=== PATIENT | female | born 1995 | race African-American/Black ===

== ENCOUNTER 2019-06-03 12:59 | Emergency (ER) | payer OTHER, SELFPAY ==
--- NOTE | ~2019-06-03 | CT_ITS ---
EXAMINATION: CTA chest PE protocol DATE: 06/03/2019 16:10 INDICATION: Persistent dry cough TECHNIQUE: Computed tomography (CT) pulmonary angiogram of the chest was performed with 100 mL Omnipa que-350 intravenous contrast. Additional 3D reconstructions utilizing coronal maximum intensity proje ction (MIP) were performed. The dose-length product was 163.06 mGy-cm. COMPARISON: None FINDINGS: Excellent contrast opacification of the pulmonary arteries. There is mild streak artifact from dense contrast in the superior vena cava and right atrium small metallic items external to the patient. Mil d scattered respiratory motion artifact which does not significantly limit evaluation. No pulmonary e mbolism. Diffuse mild bronchial wall thickening. No evident mucus or other endobronchial lesions. No airspace disease, pulmonary edema, pleural effusion or pneumothorax. Heart size is normal. No pericar dial effusion. No pathologically enlarged thoracic lymphadenopathy. Mild thoracic levocurvature. IMPRESSION: 1. Mild bronchial wall thickening without evident lung disease consistent with bronchitis. Reviewed, dictated and finalized at location A.
--- NOTE | ~2019-06-03 | XR_ITS ---
EXAMINATION: XR chest 2V DATE: 06/03/2019 14:02 INDICATION: 3 weeks of productive cough TECHNIQUE: PA and lateral views of the chest were obtained. COMPARISON: None FINDINGS: The lungs are clear with no focal airspace opacities, pulmonary edema, pleural effusion or pneumothor ax. The cardiomediastinal silhouette is normal. Mild lower thoracic levocurvature. IMPRESSION: 1. No acute cardiopulmonary disease. Reviewed, dictated and finalized at location A.
[2019-06-03 13:14] VITALS: BP 105/60; PULSE 90; RESP 16; TEMP 36.7; O2SAT 94
[2019-06-03 13:22] VITALS: BP 105/60; PULSE 90; RESP 17; TEMP 36.7; O2SAT 94
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
[2019-06-03 15:06] LABS: Basophils Percent Auto 0.3 % (0.2-1.2); Eosinophils Absolute Auto 0.3 K/mm3 (0-0.3); Hematocrit 33.6 % (37.0-47.0); Hemoglobin 11.6 g/dL (12.0-15.0); Immature Granulocyte Absolute 0.02 K/mm3 (0.00-0.031); Immature Granulocyte Percent A 0.3 % (0-0.5); Lymphocytes Absolute Auto 2.12 K/mm3 (0.9-3.2); Lymphocytes Percent Auto 27.1 % (18.3-44.2); Mean Corpuscular HGB Conc 34.5 g/dl (32-36); Mean Corpuscular Hemoglobin 27.8 pg (26-34); Mean Corpuscular Volume 80.4 fl (80-100); Mean Platelet Volume 9.6 fl (7.4-10.4); Monocytes Absolute Auto 0.7 K/mm3 (0.1-0.6); Neutrophils Absolute Auto 4.7 K/mm3 (1.3-6.7); Neutrophils Percent Auto 59.3 % (45.5-73.1); Platelet Count Result 283 k/mm3 (150-375); Red Blood Count 4.18 M/mm3 (4.2-5.4); Red Cell Distribution Width 13.2 % (11.5-14.5); White Blood Count 7.8 K/mm3 (4.5-10.0)
[2019-06-03 15:18] LABS: Alanine Aminotransferase 12 U/L (4-35); Albumin Level 3.8 g/dL (3.5-5.1); Alkaline Phosphatase 68 U/L (38-126); Aspartate Amino Transferase 21 U/L (14-36); Bilirubin,Total 0.6 mg/dL (0.2-1.3); Blood Urea Nitrogen 7 mg/dL (7-17); Calcium 8.7 mg/dL (8.4-10.2); Carbon Dioxide 23 mmol/L (22-30); Chloride 108 mmol/L (98-107); Estimated CRCL calculation 67 ml/min; Estimated Glomerular Filt Rate > 60; Glucose 73 mg/dL (65-105); Sodium 137 mmol/L (137-145)
[2019-06-03 16:21] VITALS: BP 112/78; PULSE 58; RESP 15; O2SAT 100
== END 2019-06-03 16:49 | disposition home or self-care (01) ==
PROVIDERS: Physician Assistant; Emergency Provider Emergency Medicine
DX: J40 Bronchitis, not specified as acute or chronic (principal)
CPT/HCPCS: 36415; 71046; 71275; 80053; 81025; 85025; 87804; 99284; Q9967

== ENCOUNTER 2023-07-23 08:44 | Emergency (ER) | payer OTHER, SELFPAY ==
[2023-07-23 08:47] VITALS: BP 113/86; PULSE 84; RESP 17; TEMP 36.8; O2SAT 100
--- NOTE | 2023-07-23 09:06 | ED.URI ---
HPI - URI/Sore Throat General Chief Complaint: Upper Respiratory Infection Stated Complaint: headache, cough Time Seen by Provider: 07/23/23 08:47 History of Present Illness HPI Narrative: 28-year-old female no medical problems presents to the emergency room for acute onset of cough, sinus congestion, PND, headaches, and body aches for 3 days. Patient states she has taken Robitussin times once with no improvement of her symptoms. Denies any shortness of breath difficulty breathing. Denies any earache or sore throat. Denies fevers Related Data Allergies Allergy/AdvReac Type Severity Reaction Status Date / Time No Known Allergies Allergy Verified 07/23/23 08:50 Review of Systems Review of Systems: ROS unremarkable except for noted in HPI PMFSH Social History Social History Gender identity (if verbalized by the patient): Female Exam Narrative: GENERAL: Well-appearing, well-nourished, no physical limitations, and in no acute distress. HEAD: Normocephalic, atraumatic. EYES: Conjunctivae normal, PERRLA and EOMI. ENT: External nose normal, Nares with clear rhinorrhea. Mucous membranes moist. Oropharynx without tonsillar hypertrophy exudate or other lesions. External ears normal, bilateral TMs normal bilaterally NECK: Supple. No meningeal signs. No adenopathy or masses. CHEST: Clear to auscultation. No respiratory distress. No wheezes rales or rhonchi. HEART: Regular rate and rhythm. No murmur heard. Normal peripheral pulses. EXTREMITIES: Normal range of motion. No edema. No clubbing or cyanosis SKIN: Warm, dry, no rash. No noted wounds NEURO: No focal deficits. Alert and oriented x3. MAEW. CN's II-XI intact bilaterally, normal gait PSYCH: Cooperative. Normal mood and affect. Course Vital Signs Vital signs: Vital Signs Temperature 36.8 C 07/23/23 08:47 Pulse Rate 84 07/23/23 08:47 Respiratory Rate 17 07/23/23 08:47 Blood Pressure 113/86 07/23/23 08:47 Pulse Oximetry 100 07/23/23 08:47 Oxygen Delivery Room Air 07/23/23 08:47 Temperature 36.8 C 07/23/23 08:47 Pulse Rate 84 07/23/23 08:47 Respiratory Rate 17 07/23/23 08:47 Blood Pressure 113/86 07/23/23 08:47 Pulse Oximetry 100 07/23/23 08:47 Oxygen Delivery Room Air 07/23/23 09:56 MDM - URI/Sore Throat Lab Data Labs: Lab Results 07/23/23 Range/Units 09:01 Influenza A (RT-PCR) Negative (Negative) Influenza B (RT-PCR) Negative (Negative) RSV (RT-PCR) Negative (Negative) SARS-CoV-2 RNA (RT-PCR) Negative (Negative) Discharge Plan Discharge Clinical Impression: Upper respiratory infection Patient Disposition: Home, Self-Care Condition: Stable Instructions: Antibiotic Form, Viral Syndrome (ED), Cold Symptoms (ED) Prescriptions: New benzonatate 200 mg capsule 200 mg PO TID Qty: 20 0RF pseudoephedrine HCl 30 mg capsule (abuse-resistant) 30 mg PO Q4-6H PRN (Reason: nasal congestion) Qty: 24 0RF Rx Instructions: DNExceed 4 doses/24h pseudoephedrine HCl [Sudogest] 30 mg tablet 30 mg PO Q4-6H PRN (Reason: nasal congestion) Qty: 24 0RF Rx Instructions: DNExceed 4 doses/24h No Action methylprednisolone [Medrol (Cam)] 4 mg tablets,dose pack See Rx Instructions .ROUTE .COMPLEX Qty: 21 0RF Rx Instructions: orally per package directions albuterol sulfate [ProAir HFA] 90 mcg/actuation HFA aerosol inhaler 2 puff INHALATION QID PRN (Reason: shortness of breath or wheezing) Qty: 8 0RF promethazine-codeine 6.25-10 mg/5 mL syrup 5 ml PO Q6H PRN (Reason: cough) Qty: 100 0RF promethazine-codeine 6.25-10 mg/5 mL syrup 5 ml PO Q6H PRN (Reason: cough) Qty: 100 0RF Follow-up/Referrals: UNKNOWN,DOCTOR [Primary Care Provider] - Stand Alone Forms: Work/School Release IP Time of Disposition: 10:07
[2023-07-23 09:57] LABS: Influenza A QL RT-PCR Negative (Negative); Influenza B QL RT-PCR Negative (Negative); RSV RNA, RT-PCR Negative (Negative); SARS-CoV-2 RNA PCR Negative (Negative)
== END 2023-07-23 10:29 | disposition home or self-care (01) ==
PROVIDERS: Emergency Provider Nurse Practitioner Family
DX: J06.9 Acute upper respiratory infection, unspecified (principal); Z20.822 Contact with and (suspected) exposure to COVID-19
CPT/HCPCS: 87637; 99283